=== PATIENT | male | born 1995 | race Caucasian/White ===

== ENCOUNTER 2018-08-02 17:27 | Emergency (ER) | payer SELFPAY ==
[2018-08-02 18:11] VITALS: BP 120/73
--- NOTE | 2018-08-02 18:29 | UC ---
Abdominal Pain Male HPI - HPI Summary HPI Summary: For 2 mo. has had R scrotal discomfort and an intermittent mass. Denies pain, blood in urine or semen, penile discharge or swelling. Does not have pcp. He does not lift weights. Does lift items at work but he does not feel they are heavy. nothing makes it worse, when he sits up it resolves but his R scrotum is always larger than his L. - History of Current Complaint Chief Complaint: UCGeneralIllness Stated Complaint: PERSONAL Time Seen by Provider: 08/02/18 18:24 Hx Obtained From: Patient Pain Intensity: 0 Pain Scale Used: 0-10 Numeric Location: Other Character: Not Applicable Aggravating Factor(s): Movement Alleviating Factor(s): Position - Allergies/Home Medications Allergies/Adverse Reactions: Allergies Allergy/AdvReac Type Severity Reaction Status Date / Time No Known Allergies Allergy Verified 08/02/18 18:07 Home Medications: Home Medications NK [No Home Medications Reported] 08/02/18 [History Confirmed 08/02/18] PMH/Surg Hx/FS Hx/Imm Hx - Additional Past Medical History Additional PMH: no chronic issues Previously Healthy: Yes - Surgical History Surgical History: None - Family History Known Family History: Positive: Other - grandfather : pancreatic [place] - Social History Alcohol Use: Occasionally Substance Use Type: None Smoking Status (MU): Former Smoker - Immunization History Vaccination Up to Date: Yes Review of Systems All Other Systems Reviewed And Are Negative: Yes Constitutional: Negative: Fever Skin: Negative: Rash Gastrointestinal: Negative: Abdominal Pain, Vomiting, Diarrhea, Nausea Genitourinary: Negative: Dysuria, Vaginal/Penile Burning, Vaginal/Penile Itching , Vaginal/Penile Discharge, Vaginal/Penile Pain, Vaginal/Penile Tenderness Neurological: Negative: Weakness Physical Exam Triage Information Reviewed: Yes Appearance: Well-Appearing Vital Signs: Initial Vital Signs Temp 97.4 F 08/02/18 18:07 Pulse 59 08/02/18 18:07 Resp 16 08/02/18 18:07 BP 120/73 08/02/18 18:07 Pulse Ox 100 08/02/18 18:07 Vital Signs Reviewed: Yes Male Genital Exam: Positive: Other - R testicle > L testicle. NO swelling or tenderness. A mass-like area felt on R scrotum when pt. was laying down and as he sat up able to feel it lessen. able to palpate into R inguinal canal and no changes.. Negative: Epididymal Tenderness, Erythema, Inguinal Tenderness, Scrotum Tenderness (R), Scrotum Tenderness (L), Testicular Tenderness (R), Testicular Tenderness (L), Urethral Discharge Abd Pain Male Course/Dx - Course Course Of Treatment: For 2 mo. hx of R scrotal mass that changes w/ position. Nontender so unlikely torsion. In differential is sliding inguinal hernia vs. other mass as R testicle remains larger than L even w/ position changes. Not thought to be infectious. vital signs good. ULtrasound needed and recommended ED for this as we do not have on site. Also recommend seeing gen surg. vs. urology depending on dx. - Differential Dx/Clinical Impression Differential Diagnosis/HQI/PQRI: Epididymitis, Other Provider Diagnosis: Testicular mass Discharge - Sign-Out/Discharge Documenting (check all that apply): Patient Departure All imaging exams completed and their final reports reviewed: No Studies - Discharge Plan Condition: Good Disposition: HOME Patient Education Materials: Inguinal Hernia (ED) Forms: *Work Release Referrals: Andres Hogue MD [Medical Doctor] - 1 Week (Possible varicocele, Ultrasound pending.) Conor Rodriguez MD [Medical Doctor] - 1 Week (Possible hernia, Ultrasound pending) Additional Instructions: First step would be getting an Ultrasound which they can do at the Emergency Room. I've put the phone numbers of a General Surgeon (for a hernia) and a Urologist ( for any other diagnosis) Depending on what the diagnosis is you would see either one. If it becomes painful or worsening please go to the Emergency room. - Billing Disposition and Condition Condition: GOOD Disposition: Home - Attestation Statements Provider Attestation: Per institutional requirements, I have reviewed the chart, however, I was not consulted specifically or made aware of this patient by the midlevel provider. I did not personally evaluate, interact with , or disposition this patient.
== END 2018-08-02 18:48 | disposition home or self-care (01) ==
LOC: UCCORT 17:27
DX: N50.9 Disorder of male genital organs, unspecified (principal); Z87.891 Personal history of nicotine dependence
CPT/HCPCS: 99201; G0463

== ENCOUNTER 2019-01-21 10:28 | Emergency (ER) | payer OTHER ==
[2019-01-21] MEDS ORDERED: Tetan/Diph/Pertus SYR(Tdap)* 0.5 ML SYR(BOOSTRIX) use SYR contains LATEX IM ONE (11:00)
--- NOTE | 2019-01-21 11:02 | UC ---
Laceration HPI - HPI Summary HPI Summary: Pt presents with c/o laceration to left index finger while he was slicing tomatoes at work. Pt is unsure last time he had tetanus vaccine - History Of Current Complaint Chief Complaint: UCLaceration Stated Complaint: LEFT INDEX FINGER LACERATION Time Seen by Provider: 01/21/19 10:51 Hx Obtained From: Patient Laceration Location: Finger - left index finger Mechanism Of Injury: Sharp Trauma Onset/Duration: Sudden Onset Severity: Mild Pain Intensity: 0 Aggravating Factors: Position, Movement Related History: Dominant Hand Right - Allergies/Home Medications Allergies/Adverse Reactions: Allergies Allergy/AdvReac Type Severity Reaction Status Date / Time No Known Allergies Allergy Verified 01/21/19 10:45 PMH/Surg Hx/FS Hx/Imm Hx Previously Healthy: Yes - Surgical History Surgical History: None - Family History Known Family History: Positive: Other - grandfather : pancreatic [place] - Social History Occupation: Employed Full-time Lives: With Family Alcohol Use: Occasionally Substance Use Type: None Smoking Status (MU): Former Smoker Have You Smoked in the Last Year: No When Did the Patient Quit Smoking/Using Tobacco: 3 months ago - Immunization History Most Recent Tetanus Shot: unknown Vaccination Up to Date: No Review of Systems All Other Systems Reviewed And Are Negative: Yes Constitutional: Positive: Negative Skin: Positive: Other - laceration to left index finger Eyes: Positive: Negative ENT: Positive: Negative Respiratory: Positive: Negative Cardiovascular: Positive: Negative Gastrointestinal: Positive: Negative Genitourinary: Positive: Negative Motor: Positive: Negative Neurovascular: Positive: Negative Musculoskeletal: Positive: Myalgia - pain at laceration site, Neurological: Positive: Negative Psychological: Positive: Negative Is Patient Immunocompromised?: No Physical Exam Triage Information Reviewed: Yes Appearance: Well-Appearing Vital Signs: Initial Vital Signs Temp 98.2 F 01/21/19 10:39 Pulse 113 01/21/19 10:39 Resp 18 01/21/19 10:39 BP 102/60 01/21/19 10:39 Pulse Ox 97 01/21/19 10:39 Vital Signs Reviewed: Yes Eye Exam: Normal ENT Exam: Normal ENT: Positive: Normal ENT inspection Dental Exam: Normal Neck exam: Normal Respiratory: Positive: No respiratory distress Cardiovascular: Positive: Tachycardia Musculoskeletal: Positive: Strength Intact, ROM Intact, No Edema Neurological Exam: Normal Psychological Exam: Normal Skin Exam: Other - laceration dorsal aspect of left index finger Laceration Repair - Laceration Repair 1 Description: Linear Laceration Size After Repair: Length (cm) - 1, Width (mm) - 2, Depth (mm) - 2 Modified For Repair: No Cleansing Completed Via Routine Prep: Yes Irrigation With Pressure Irrigation Device: Yes Closure Material: Skin Adhesive, SteriStrips Closure Method: Single Layer Suture Of: Skin Laceration Course/Dx - Course/Dx Course Of Treatment: laceration of left index finger at MIP joint dorsal aspect. Skin adhesive and steri strips used, edges well approximate. Pt tolerated well. Explicit instructions regarding wound care given. Pt verbalized understanding and agreed to plan of care - Differential Dx - Laceration/Wound Differental Diagnoses: Laceration, Tendon Laceration - Diagnosis Provider Diagnosis: Laceration of index finger of left hand without complication Discharge ED - Sign-Out/Discharge Documenting (check all that apply): Patient Departure All imaging exams completed and their final reports reviewed: No Studies - Discharge Plan Condition: Stable Disposition: HOME Patient Education Materials: Finger Laceration (ED), Skin Adhesive Care (ED), Steristrips (ED) Referrals: [facility] [place] [facility] [Outside] No Primary Care Phys,NOPCP [Primary Care Provider] - Additional Instructions: Please keep your wound clean and dry until wound has closed. Please do not apply antibiotic ointment on wound. If you notice increase redness, swelling, or purulent discharge, please return to or see your PCP. - Billing Disposition and Condition Condition: STABLE Disposition: Home
[2019-01-21 11:03] VITALS: BP 102/60
== END 2019-01-21 11:15 | disposition home or self-care (01) ==
LOC: UCCORT 10:28
DX: S61.211A Laceration without foreign body of left index finger without damage to nail, initial encounter (principal); Z23 Encounter for immunization; W26.9XXA Contact with unspecified sharp object(s), initial encounter; Y92.9 Unspecified place or not applicable; Z87.891 Personal history of nicotine dependence
CPT/HCPCS: 12001; 90471; 90715; 99211; G0463

== ENCOUNTER 2019-02-09 18:45 | Emergency (ER) | payer SELFPAY ==
[2019-02-09 19:32] VITALS: BP 130/86
[2019-02-09] MEDS ORDERED: Gelfoam 12-7 ADSORBABL SPONGE* 1 EA SPONGE TOPICAL ONE (19:48)
[2019-02-09] MEDS ORDERED: Tetan/Diph/Pertus SYR(Tdap)* 0.5 ML SYR(BOOSTRIX) use SYR contains LATEX IM ONE (19:55)
--- NOTE | 2019-02-09 19:55 | UC ---
Laceration HPI - HPI Summary HPI Summary: Left thumb avulsion approx 1800 while using a knife to cut bread/ - History Of Current Complaint Chief Complaint: UCLaceration Stated Complaint: LEFT THUMB LACERATION Time Seen by Provider: 02/09/19 19:27 Hx Obtained From: Patient Laceration Location: Finger Mechanism Of Injury: Sharp Trauma Onset/Duration: Sudden Onset, Lasting Hours Severity: Moderate Pain Intensity: 3 Aggravating Factors: Movement - Allergies/Home Medications Allergies/Adverse Reactions: Allergies Allergy/AdvReac Type Severity Reaction Status Date / Time No Known Allergies Allergy Verified 02/09/19 19:26 PMH/Surg Hx/FS Hx/Imm Hx Previously Healthy: Yes - Surgical History Surgical History: None - Family History Known Family History: Positive: Other - grandfather : pancreatic [place] - Social History Alcohol Use: Occasionally Substance Use Type: None Smoking Status (MU): Former Smoker Have You Smoked in the Last Year: No When Did the Patient Quit Smoking/Using Tobacco: 3 months ago - Immunization History Most Recent Tetanus Shot: unknown Vaccination Up to Date: No Review of Systems All Other Systems Reviewed And Are Negative: Yes Skin: Positive: Other - avulsion Is Patient Immunocompromised?: No Physical Exam Triage Information Reviewed: Yes Appearance: Well-Appearing, Well-Nourished, Pain Distress Vital Signs: Initial Vital Signs Temp 98.7 F 02/09/19 19:27 Pulse 109 02/09/19 19:27 Resp 18 02/09/19 19:27 BP 130/86 02/09/19 19:27 Pulse Ox 100 02/09/19 19:27 Vital Signs Reviewed: Yes Eye Exam: Normal ENT Exam: Normal Dental Exam: Normal Respiratory Exam: Normal Cardiovascular Exam: Normal Musculoskeletal Exam: Normal Neurological Exam: Normal Psychological Exam: Normal Skin: Positive: Other - 1x1x.3 avulsion of the tip of the left thumb Laceration Repair - Laceration Repair 1 Description: Irregular : No Repair Necessary Laceration Size After Repair: Length (cm) - 1 cm, Width (mm) - 1 cm, Depth (mm) - .3 cm Modified For Repair: No Cleansing Completed Via Routine Prep: Yes Irrigation With Pressure Irrigation Device: No Laceration Course/Dx - Course/Dx Course Of Treatment: hx obtained, exam performed ,meds reviewed, wound irrigated, gel foam and pressure dressing applied. keflex prescribed - Differential Dx - Laceration/Wound Differental Diagnoses: Avulsion, Laceration - Diagnosis Provider Diagnosis: Avulsion of skin of thumb without complication Discharge ED - Sign-Out/Discharge Documenting (check all that apply): Patient Departure All imaging exams completed and their final reports reviewed: No Studies - Discharge Plan Condition: Stable Disposition: HOME Prescriptions: Cephalexin CAP* [Keflex CAP*] 500 mg PO BID #10 cap Patient Education Materials: Skin Avulsion (ED) Referrals: No Primary Care Phys,NOPCP [Primary Care Provider] - Additional Instructions: 1. allo the bandage to stay clean and dry for 48 hours 2. carefully remove the dressing leaving the surgical foam in place 3 redress daily and if soiled until the area is healed. - Billing Disposition and Condition Condition: STABLE Disposition: Home
[2019-02-09] MEDS ORDERED: Ibuprofen TAB* 600 MG PO ONE (19:56)
== END 2019-02-09 20:32 | disposition home or self-care (01) ==
LOC: UCCORT 18:45
DX: S61.012A Laceration without foreign body of left thumb without damage to nail, initial encounter (principal); Z87.891 Personal history of nicotine dependence; W26.0XXA Contact with knife, initial encounter; Y92.9 Unspecified place or not applicable
CPT/HCPCS: 99212; A9270-GY; G0463